=== PATIENT | female | born 1950 | race Hispanic/Latino ===

== ENCOUNTER → 2017-09-19 | Outpatient (CLI) | payer MEDICARE ==
[~2017-09-19] MED LIST: ASPIR 8181 MG PO; CALCIUM CITRAT1 EA10 PO; METOPROLOL SUCC50 MG PO; MULTIVITAMINS1 EAC7 PO; TRIAMTERENE-HCTZ1 EA PO; VITAMIN C500 M1 PO; VITAMIN D32000 UNIT PO
--- NOTE | 2017-09-19 14:43 | Diagnostic Imaging Report ---
PROCEDURE:CHEST 2 VIEWS TECHNIQUE:PA and lateral chest INDICATION:Preoperative evaluation for D\T\C COMPARISON:None. FINDINGS: The lungs are clear and symmetrically inflated. Prominent cardiac silhouette and left atrial mogul. Mild central vascular congestion. Intact skeleton. Multilevel degenerative disc disease. CONCLUSION: Mild central vascular congestion and mild cardiomegaly. No acute abnormality. Dictated by: Patrick Becker M.D. on 09/19/2017 at 14:43 Electronically approved by: Patrick Becker M.D. on 09/19/2017 at 14:43
--- OUTSIDE RECORDS SUMMARY | 2017-09-20 09:14 | XMS REPORT ---
Author Author [facility] Address Unknown Phone Unavailable Care Team Providers Care Hadoop Admin Name Role Phone NAYELI PINA Unavailable Unavailable Problems This patient has no known problems. Allergies, Adverse Reactions, Alerts This patient has no known allergies or adverse reactions. Medications This patient has no known medications. Results Test Description Test Time Test Comments Text Results Atomic Results Result Comments CHEST [address] [address] Patient Name: CRISTI JARVIS MR #: [id number] : 1950 Age/Sex: 67/F Req #: [id number] [facility] Physician: Ordered by: NAYELI PINA MD Report #: [id number] Location: OR Room/Bed: Procedure: [id number] DX/CHEST 2 VIEWS Exam Date: Exam Time: REPORT STATUS: Signed PROCEDURE: CHEST 2 VIEWS TECHNIQUE: PA and lateral chest INDICATION: Preoperative evaluation for D T C COMPARISON: None. FINDINGS: The lungs are clear and symmetrically inflated. Prominent cardiac silhouette and left atrial mogul. Mild central vascular congestion. Intact skeleton. Multilevel degenerative disc disease. CONCLUSION: Mild central vascular congestion and mild cardiomegaly. No acute abnormality. Dictated by: Monica Becker M.D. on 2017 at 14:43 Electronically approved by: Monica Becker M.D. on at 14:43 Dictated By: MONICA BECKER MD [id number] Transcribed By: GULSHAN on 09/19/17 1443 COPY TO: NAYELI PINA MD
[2017-09-20 09:15] LABS: BASOPHILS # (AUTO) 0.1 (0.0-0.1); BASOPHILS % 1.4 % (0.0-1.0); EOSINOPHILS # (AUTO) 0.2 (0.0-0.4); EOSINOPHILS % 3.4 % (0.0-6.0); HEMATOCRIT 39.2 % (34.2-44.1); HEMOGLOBIN 12.9 g/dL (12.0-16.0); LYMPHOCYTES # (AUTO) 1.6 (1.0-3.2); LYMPHOCYTES % 27.9 % (18.0-39.1); MEAN CORPUSCULAR HEMOGLOBIN 29.9 pg (28-32); MEAN CORPUSCULAR HGB CONC 32.9 g/dL (31-35); MEAN CORPUSCULAR VOLUME 90.7 fL (81-99); MONOCYTES # (AUTO) 0.8 (0.2-0.8); MONOCYTES % 14.1 % (4.4-11.3); NEUTROPHILS # (AUTO) 3.1 (2.1-6.9); PLATELET COUNT 211 x10e3/uL (140-360); RED BLOOD COUNT 4.32 x10e6/uL (3.6-5.1); RED CELL DISTRIBUTION WIDTH 13.2 % (11.7-14.4)
[2017-09-20 09:34] LABS: ANION GAP 13.9 mmol/L (8-16); BLOOD UREA NITROGEN 15 mg/dL (7-26); BUN/CREATININE RATIO 21 (6-25); CALCIUM 9.3 mg/dL (8.4-10.2); CARBON DIOXIDE 31 mmol/L (22-29); CHLORIDE 105 mmol/L (98-107); EST GLOMERULAR FILTRATION RATE > 60 ML/MIN (60-); GLUCOSE 116 mg/dL (74-118); POTASSIUM 4.9 mmol/L (3.5-5.1); SODIUM 145 mmol/L (136-145)
== END ==
LOC: RAD 05:00 → OR 09-20 09:12 → EDSTATUS 09-20 12:30
PROVIDERS: ATTEND Obstetrics & Gynecology Obstetrics
DX: N95.0 Postmenopausal bleeding (principal); I10 Essential (primary) hypertension; I35.0 Nonrheumatic aortic (valve) stenosis; Z01.810 Encounter for preprocedural cardiovascular examination; Z01.812 Encounter for preprocedural laboratory examination; Z01.818 Encounter for other preprocedural examination; Z53.09 Procedure and treatment not carried out because of other contraindication
CPT/HCPCS: 36415; 71046; 80048; 85025; 93005

== ENCOUNTER → 2018-07-05 | Day surgery (SDC) | payer MEDICARE ==
[2018-06-29 17:25] LABS: BASOPHILS # (AUTO) 0.1 (0.0-0.1); BASOPHILS % 1.2 % (0.0-1.0); EOSINOPHILS # (AUTO) 0.1 (0.0-0.4); EOSINOPHILS % 1.7 % (0.0-6.0); HEMATOCRIT 39.6 % (34.2-44.1); HEMOGLOBIN 12.9 g/dL (12.0-16.0); LYMPHOCYTES # (AUTO) 1.1 (1.0-3.2); LYMPHOCYTES % 18.8 % (18.0-39.1); MEAN CORPUSCULAR HEMOGLOBIN 30.6 pg (28-32); MEAN CORPUSCULAR HGB CONC 32.6 g/dL (31-35); MEAN CORPUSCULAR VOLUME 94.1 fL (81-99); MONOCYTES # (AUTO) 0.6 (0.2-0.8); MONOCYTES % 9.8 % (4.4-11.3); NEUTROPHILS % 68.2 % (38.7-80.0); PLATELET COUNT 199 x10e3/uL (140-360); RED BLOOD COUNT 4.21 x10e6/uL (3.6-5.1); RED CELL DISTRIBUTION WIDTH 12.8 % (11.7-14.4)
[2018-06-29 17:35] LABS: INR 0.89; PROTHROMBIN TIME 12.9 seconds (11.9-14.5)
[2018-06-29 17:42] LABS: ALANINE AMINOTRANSFERASE 43 IU/L (0-55); ALBUMIN/GLOBULIN RATIO 1.1 (0.8-2.0); ALKALINE PHOSPHATASE 70 IU/L (40-150); ANION GAP 16.4 mmol/L (8-16); BLOOD UREA NITROGEN 18 mg/dL (7-26); BUN/CREATININE RATIO 25 (6-25); CALCIUM 9.7 mg/dL (8.4-10.2); CARBON DIOXIDE 24 mmol/L (22-29); CHLORIDE 100 mmol/L (98-107); CREATININE, SERUM 0.73 mg/dL (0.57-1.11); EST GLOMERULAR FILTRATION RATE > 60 ML/MIN (60-); GLUCOSE 87 mg/dL (74-118); POTASSIUM 3.4 mmol/L (3.5-5.1); SODIUM 137 mmol/L (136-145)
[2018-07-05] VITALS (8 sets, daily range): BP systolic 123–136; BP diastolic 64–73
[~2018-07-05] VITALS: Ht 160 cm; Wt 106.6 kg
[~2018-07-05] MED LIST changes: +ATORVASTATIN CA20 MG PO; +CLOPIDOGREL75 MG PO; +FENTANYL CITRATE/PF 100MCG/2 ML INJ ONE; +FUROSEMIDE40 MG PO; +HEPARIN SOD (PORCINE) 1000 UNIT/ML 30ML ONE; +HEPARIN SOD/SOD CHLORIDE 2,000 ML ONE; +IOPAMIDOL 370 MG/ML 200 ML INFUS..BTL INJ ONE; +LIDOCAINE HCL 2% LOCAL 20 ML VIAL ONE; +LISINOPRIL5 MG PO; +METOPROLOL TART25 MG PO; +MIDAZOLAM HCL 2 MG/2 ML VIAL ONE; +SODIUM CHLORIDE 0.9% 1000ML 1,000 ML ONE; +VERAPAMIL HCL 2.5 MG/ML 2 ML VIAL ONE
--- NOTE | 2018-07-05 12:20 | NUR ---
RETURNED TO [facility]10 AAOX3, VSS POST DIAGNOSTIC [facility] RADIAL BAND TO R WRIST 10ML AIR, SITE CLEAN, DRY, INTACT NO S/S OF BLEEDING OR HEMATOMA, BRISK CAPILLARY REFILL, RADIAL PULSES PALPABLE. IV PATENT. POST PROCEDURE TEACHING PROVIDED. CARDIAC DIET FOOD TRAY ORDERED. BED IN LOWEST POSITION, SIDE RAILS UP, CALL LIGHT WITHIN REACH. AT BEDSIDE.
--- NOTE | 2018-07-05 12:35 | NUR ---
AAOX3, VSS. AMBULATED TO RESTROOM WITH ASSIST. SITE TO R WRIST REMAINED CLEAN, DRY, INTACT NO S/S OF BLEEDING OR HEMATOMA, BRISK CAPILLARY REFILL, RADIAL PULSES PALPABLE. BED IN LOWEST POSITION, SIDE RAILS UP, CALL LIGHT WITHIN REACH. AT BEDSIDE.
--- NOTE | 2018-07-05 12:50 | NUR ---
AAOX3, VSS. TOLERATING PO SOLID AND LIQUID INTAKE. SITE TO R WRIST CLEAN, DRY, INTACT NO S/S OF BLEEDING OR HEMATOMA, BRISK CAPILLARY REFILL, RADIAL PULSES PALPABLE. DENIED PAIN OR NEEDS AT THIS TIME. BED IN LOWEST POSITION, SIDE RAILS UP, CALL LIGHT WITHIN REACH. AT BEDSIDE.
--- NOTE | 2018-07-05 13:00 | NUR ---
AAOX3, VSS. 2ML AIR REMOVED FROM R RADIAL BAND. SITE REMAINED CLEAN, DRY, INTACT NO S/S OF BLEEDING OR HEMATOMA, BRISK CAPILLARY REFILL, RADIAL PULSES PALPABLE. IV PATENT. BED IN LOWEST POSITION, SIDE RAILS UP, CALL LIGHT WITHIN REACH. AT BEDSIDE.
--- NOTE | 2018-07-05 13:20 | NUR ---
AAOX3, VSS. 2ML AIR REMOVED FROM R RADIAL BAND. SITE REMAINED CLEAN, DRY, INTACT NO S/S OF BLEEDING OR HEMATOMA, BRISK CAPILLARY REFILL, RADIAL PULSES PALPABLE. BED IN LOWEST POSITION, SIDE RAILS UP, CALL LIGHT WITHIN REACH. AT BEDSIDE.
--- NOTE | 2018-07-05 13:40 | NUR ---
AAOX3, VSS. 2ML AIR REMOVED FROM R RADIAL BAND. TR BAND REMOVED AND COVERED BY STERILE GAUZE AND TEGADERM. SITE TO R WRIST REMAINED CLEAN, DRY, INTACT NO S/S OF BLEEDING OR HEMATOMA, BRISK CAPILLARY REFILL, RADIAL PULSES PALPABLE. IV D/C WITH CATHETER INTACT, HEMOSTASIS OBTAINED, COVERED BY GAUZE AND COBAN. WRITTEN AND VERBAL DISCHARGE INSTRUCTIONS PROVIDED TO PT AND SPOUSE, VERIFIED BY RETURN DEMONSTRATION. DISCHARGED FROM UNIT BY W/C IN STABLE CONDITION TO SPOUSE DRIVING POV.
--- NOTE | 2018-08-31 05:26 | Operative Report ---
DATE OF PROCEDURE: 07/05/2018 PROCEDURE PERFORMED: 1. Conscious sedation 26 minutes. 2. Selective coronary angiography x2. PREPROCEDURE DIAGNOSIS: Aortic stenosis. POSTPROCEDURE DIAGNOSIS: Aortic stenosis. ESTIMATED BLOOD LOSS: Less than 20 mL. SPECIMENS REMOVED: None. PROCEDURE IN DETAIL: After informed consent was obtained, the patient was brought to the cardiac catheterization laboratory in a fasting, nonsedated state. Right wrist was prepped and draped in usual sterile fashion. Selective coronary angiography was performed using a TIG catheter. Left heart catheterization was not performed. Hemostasis was achieved via TR band. The patient tolerated the procedure well, there were no immediate complications, and transferred back to room in stable condition. PROCEDURE FINDINGS: 1. Left main coronary artery is patent without significant coronary artery disease. 2. Left anterior descending coronary artery has diagonal branches that are patent with mild luminal irregularities. 3. Left circumflex coronary artery provides 2 obtuse marginal vessels, the first of which is a bifurcating vessel. 4. Right coronary artery is a dominant vessel, provides posterior descending coronary artery. IMPRESSION AND PLAN: This is a woman, who is found to have severe aortic stenosis, who has no coronary artery disease. Proceed with TAVR evaluation. DO AMOR Alan/CASSIL /[id number]
== END | disposition home or self-care (01) ==
LOC: CATH LAB 09:15
PROVIDERS: ATTEND Internal Medicine Cardiovascular Disease
DX: I25.10 Atherosclerotic heart disease of native coronary artery without angina pectoris (principal); I35.0 Nonrheumatic aortic (valve) stenosis; I10 Essential (primary) hypertension; Z01.812 Encounter for preprocedural laboratory examination; Z79.82 Long term (current) use of aspirin; Z79.02 Long term (current) use of antithrombotics/antiplatelets; Z68.41 Body mass index [BMI] 40.0-44.9, adult; Z82.49 Family history of ischemic heart disease and other diseases of the circulatory system
CPT/HCPCS: 36415; 80053; 85025; 85610; 93454; C1769; C1887; J1644; J2001; J2250; J7030; Q9967

== ENCOUNTER → 2020-01-07 | Outpatient (CLI) | payer MEDICARE ==
[~2020-01-07] MED LIST changes: -FENTANYL CITRATE/PF 100MCG/2 ML INJ ONE; -HEPARIN SOD (PORCINE) 1000 UNIT/ML 30ML ONE; -HEPARIN SOD/SOD CHLORIDE 2,000 ML ONE; -IOPAMIDOL 370 MG/ML 200 ML INFUS..BTL INJ ONE; -LIDOCAINE HCL 2% LOCAL 20 ML VIAL ONE; -MIDAZOLAM HCL 2 MG/2 ML VIAL ONE; -SODIUM CHLORIDE 0.9% 1000ML 1,000 ML ONE; -VERAPAMIL HCL 2.5 MG/ML 2 ML VIAL ONE
--- NOTE | 2020-01-07 12:27 | Diagnostic Imaging Report ---
EXAM: US PELVIC (NON OB) DAVIS OR F/U, US ABDOMEN COMPLETE DATE: 01/07/2020 10:38 AM INDICATION: Pancytopenia COMPARISON: None FINDINGS: The visualized pancreas is unremarkable. The liver is normal in size measuring 16.8 cm in length. Hepatic echogenicity is within normal limits. No focal hepatic abnormality is identified. The main portal vein is patent with antegrade flow and diameter of 0.8 cm. Multiple shadowing stones are identified within the gallbladder. There is no evidence for gallbladder wall thickening or pericholecystic fluid. There is no intra or extrahepatic biliary ductal dilatation. The common bile duct measures 4 mm. Sonographic Yi's sign is negative. The spleen is normal in size measuring 9.7 cm in length and demonstrates an unremarkable sonographic appearance. The kidneys are normal in size measuring 10.1 cm in length on the right and 10.5 cm in length on the left. Cortical thickness/echogenicity is within normal limits. There is no evidence for solid renal mass, hydronephrosis, or shadowing calculi. The urinary bladder is unremarkable. Prevoid volume is 122 cc. Bilateral ureteral jets are noted. The uterus is not visualized and may be surgically absent. The ovaries are not visualized which may be secondary to their small size. No abnormal adnexal masses are identified. The visualized portions the IVC and aorta are within normal limits. There is no ascites present. IMPRESSION: Cholelithiasis without sonographic evidence for acute cholecystitis. Otherwise, unremarkable abdominal/pelvic ultrasound examination. Signed by: Dr. Kg Ledesma MD on 01/07/2020 12:24 PM
== END ==
LOC: US 09:54
PROVIDERS: ATTEND Internal Medicine Medical Oncology
DX: D61.818 Other pancytopenia (principal); K80.20 Calculus of gallbladder without cholecystitis without obstruction
CPT/HCPCS: 76700; 76857